=== PATIENT | male | born 1965 | race Two or more races ===

== ENCOUNTER 2017-07-09 19:32 | Emergency (ER) | payer OTHER, BC ==
[2017-07-09 19:44] VITALS: BP 198/113
[2017-07-09] MEDS ORDERED: Ibuprofen 600 MG Tab PO ONE (21:08)
--- NOTE | 2017-07-09 21:08 | EDM.PDOC ---
ED HPI GENERAL MEDICAL PROBLEM - General Chief Complaint: Lower Extremity Injury/Pain Stated Complaint: INJURED LEFT SHOULDER Time Seen by Provider: 07/09/17 19:42 Source of Information: Reports: Patient, RN Notes Reviewed History Limitations: Reports: No Limitations - History of Present Illness INITIAL COMMENTS - FREE TEXT/NARRATIVE: The patient states that he fell about 4 feet off a rig at work, landing primarily on his left shoulder, but also striking the left side of his face and his left hip, around 15:00 this afternoon. He states that he did not lose consciousness. He is complaining of pain to the anterolateral aspect of his left shoulder which radiates down to his left forearm, especially the elbow. He denies prior left upper extremity injury. The patient does not have a PCP. Left Shoulder Pain Score (Numeric/FACES): 9 - Related Data Allergies Allergy/AdvReac Type Severity Reaction Status Date / Time No Known Allergies Allergy Verified 07/09/17 19:44 Home Meds: Home Meds . 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[employer]) Review of Systems - Review of Systems Review Of Systems: See Below Constitutional: Reports: No Symptoms Eyes: Reports: No Symptoms Ears: Reports: No Symptoms Nose: Reports: No Symptoms Mouth/Throat: Reports: No Symptoms Respiratory: Reports: No Symptoms Cardiovascular: Reports: No Symptoms GI/Abdominal: Reports: No Symptoms Genitourinary: Reports: No Symptoms Musculoskeletal: Reports: No Symptoms Skin: Reports: No Symptoms Neurological: Reports: No Symptoms Psychiatric: Reports: No Symptoms ED EXAM, GENERAL - Physical Exam Exam: See Below Exam Limited By: No Limitations General Appearance: Alert, WD/WN, No Apparent Distress Eye Exam: Bilateral Eye: Normal Inspection Ears: Normal External Exam, Normal Canal, Hearing Grossly Normal, Normal TMs Nose: Normal Inspection, Normal Mucosa, No Blood Throat/Mouth: Normal Inspection, Normal Lips, Normal Voice, No Airway Compromise Head: Normocephalic, Other (Abrasions to the left side of the patient's face) Neck: Normal Inspection, Supple, Non-Tender, Full Range of Motion Respiratory/Chest: No Respiratory Distress, Lungs Clear, Normal Breath Sounds, No Accessory Muscle Use, Other (Mild tenderness to palpation of the left pectoralis muscle. No visible abnormality to this area, such as swelling, erythema, ecchymosis, or abrasion.) Cardiovascular: Normal Peripheral Pulses, Regular Rate, Rhythm, No Gallop, No JVD, No Murmur, No Rub Peripheral Pulses: 4+: Radial (L), Radial (R) GI/Abdominal: Normal Bowel Sounds, Soft, Non-Tender, No Organomegaly, No Distention, No Abnormal Bruit, No Mass (Male) Exam: Deferred Rectal (Males) Exam: Deferred Back Exam: Normal Inspection, Full Range of Motion, NT Extremities: Normal Inspection, Normal Capillary Refill, Other (no visible abnormality to the left shoulder, such as swelling, erythema, ecchymosis, or abrasion. Clinically, the shoulder is not dislocated. There is tenderness primarily to the anterolateral aspect of the shoulder. Pain is induced in this area with attempts at flexion, internal rotation, and adduction against resistance. Pain is also induced with both AROM and PROM. No clicking or crepitus. Neurovascular status of the left upper extremity is intact.) Neurological: Alert, Oriented, Normal Cognition, No Motor/Sensory Deficits Psychiatric: Normal Affect Skin Exam: Warm, Dry, Intact, Normal Color, No Rash Course - Vital Signs Last Recorded V/S: Last Vital Signs Temp 35.5 C 07/09/17 19:39 Pulse 72 07/09/17 19:39 Resp 18 07/09/17 19:39 BP 198/113 H 07/09/17 19:39 Pulse Ox 98 07/09/17 19:39 - Orders/Labs/Meds Orders: Active Orders 24 hr Category Date Time Status Elbow Min 3V Lt [CR] Stat Exams 07/09/17 19:51 Taken Humerus Lt [CR] Stat Exams 07/09/17 19:51 Taken Shoulder Comp Lt [CR] Stat Exams 07/09/17 19:50 Taken Meds: Medications Discontinued Medications Generic Name Dose Route Start Last Admin Trade Name Freq PRN Reason Stop Dose Admin Ibuprofen 600 mg 07/09/17 21:08 07/09/17 21:19 Motrin PO 07/09/17 21:09 600 mg ONETIME ONE Administration - Re-Assessments/Exams Free Text/Narrative Re-Assessment/Exam: 07/09/17 21:03 3-view radiographs of the left shoulder appear to be normal, with no bony injury , such as fracture or dislocation, identified. Formal read per the Radiologist pending. 2-view radiographs of the left humerus appear to be normal, with no bony injury , such as fracture or dislocation, identified. Formal read per the Radiologist pending. 4-view radiographs of the left elbow appear to be unremarkable, with no acute bony injury, such as fracture or dislocation, identified. Degenerative changes, including bone spurs, noted. Formal read per the Radiologist pending. 07/09/17 21:08 X-ray results discussed with the patient. No broken bones. The patient appears to have bruised his left shoulder. I'm recommending ibuprofen, but I will refer him to Dr. Pulido, should his pain not improve after a few days. Departure - Departure Time of Disposition: 21:09 Disposition: Home, Self-Care 01 Condition: Good Clinical Impression: Contusion of left shoulder - Discharge Information Instructions: Contusion, [id number] Referrals: PCP,None [Primary Care Provider] - Junito Pulido MD [Physician] - Forms: ED Department Discharge Additional Instructions: You were seen in the emergency room after injuring your left arm by falling off a rig this afternoon. Workup in the ER included x-rays of your left shoulder, left humerus, and left elbow. Other than some arthritic changes to your left elbow, no other injuries were found. Your shoulder is not dislocated. Your left arm pain appears to be due to a soft tissue contusion. We recommend you take pyaw-hpf-flptlod ibuprofen, 2-3 tablets (400-600mg) up to every 8 hours , with food, as needed for discomfort. If you continue to have pain by next week, please follow-up with the Orthopedic Surgeon Dr. Pulido. If any other problems, please do not hesitate to return to the ER. - My Orders Last 24 Hours: My Active Orders 07/09/17 19:50 Shoulder Comp Lt [CR] Stat 07/09/17 19:51 Elbow Min 3V Lt [CR] Stat Humerus Lt [CR] Stat - Assessment/Plan Last 24 Hours: My Active Orders 07/09/17 19:50 Shoulder Comp Lt [CR] Stat 07/09/17 19:51 Elbow Min 3V Lt [CR] Stat Humerus Lt [CR] Stat
--- NOTE | 2017-07-10 09:10 | CR ---
Left elbow: Four views of the left elbow were obtained. Comparison: No previous studies. Slight spurring is noted off the radius as well as mild joint space narrowing within the radiocapitellar joint. No joint effusion is seen. No acute fracture or other bony abnormality is identified. Impression: 1. Mild degenerative change as described above. 2. Nothing acute is appreciated on left elbow study. Diagnostic code #2
--- NOTE | 2017-07-10 09:10 | CR ---
Left humerus: Two views of the left humerus were obtained. No fracture or other bony abnormality is seen. Impression: 1. No abnormality is identified on two-view left humerus study. Diagnostic code #1
--- NOTE | 2017-07-10 09:10 | CR ---
Left shoulder: Three views of the left shoulder were obtained. Slight inferior spurring is seen within the acromioclavicular joint. Glenohumeral joint appears unremarkable. No acute fracture, dislocation or other bony abnormality is appreciated. Impression: 1. Slight inferior spurring off the acromioclavicular joint. 2. Nothing acute is identified on left shoulder study. Diagnostic code #2
== END 2017-07-09 21:17 | disposition home or self-care (01) ==
LOC: JD.ED 19:32
DX: S40.012A Contusion of left shoulder, initial encounter (principal); F17.210 Nicotine dependence, cigarettes, uncomplicated; W17.89XA Other fall from one level to another, initial encounter
CPT/HCPCS: 73030; 73060; 73080; 99284; A9270